=== PATIENT | female | born 1965 | race Caucasian/White ===

== ENCOUNTER 2016-06-21 06:25 | Day surgery (SDC) | payer BC ==
[2016-06-21] VITALS (11 sets, daily range): BP systolic 143–195; BP diastolic 67–94; PULSE 66–87; RESP 10–18; TEMP 98.3; O2SAT 91–100; Ht 165.1 cm; Wt 65.4 kg
[~2016-06-21] VITALS: Ht 165.1 cm; Wt 65.4 kg
[~2016-06-21 06:25] MED LIST: AMIT25TA9 PO; ASPI-557 PO; ATOR20TA59 PO; DIGO125T PO; HYDR-4072 PO; IBUP1TAB14 PO; METO-279 PO; NIAC750T15 PO; TRIA1TAB3 PO
[2016-06-21 06:58] LABS: BASOPHILS % (AUTO) 0.3 % (0-2); EOSINOPHILS # (AUTO) 0.2 T/MM3 (0-0.5); EOSINOPHILS % (AUTO) 2.5 % (0-4); HCT - HEMATOCRIT 27.5 % (36-46); HGB - HEMOGLOBIN 9.6 GM/DL (12-16); IMMATURE GRANULOCYTE # (AUTO) 0.03 T/MM3 (0.00-0.03); IMMATURE GRANULOCYTE % (AUTO) 0.5 % (0.0-0.5); LYMPHOCYTES # (AUTO) 0.6 T/MM3 (1-4.8); LYMPHOCYTES % (AUTO) 9.3 % (23-45); MEAN CORPUSCULAR HGB 35.8 UUG (26-34); MEAN CORPUSCULAR HGB CONC(MCHC 34.9 GM/DL (31-37); MEAN CORPUSCULAR VOLUME 102.6 UM3 (80-100); MEAN PLATELET VOLUME 9.7 UM3 (9.4-12.4); MONOCYTES # (AUTO) 0.5 T/MM3 (0-0.8); MONOCYTES % (AUTO) 8.8 % (0-9.0); NEUTROPHILS #(AUTO)-ABSOLUTE 4.7 T/MM3 (1.8-7.7); NEUTROPHILS % (AUTO) 78.6 % (33-66); RED BLOOD COUNT 2.68 M/MM3 (4.00-5.20)
[2016-06-21] MEDS ORDERED: LIDOCAINE 1% (10mg/ml) 2ml SDV INJ ONE (07:00)
[2016-06-21] MEDS ORDERED: LR 1,000 ML IV SCH (07:00)
[2016-06-21 07:08] LABS: CALCIUM 9.2 MG/DL (8.4-10.2); POTASSIUM 4.3 MEQ/L (3.6-5)
--- NOTE | 2016-06-21 07:09 | ANESPREOP ---
Anesthesia Record Date and Time DATE: 06/21/16 TIME: 07:03 Pre-Op Diagnosis cervical cancer Proposed Surgical Procedure TANDEM& OVOID INSERTION #1 NPO since: mn Allergies: Coded Allergies: latex (Verified Allergy, Intermediate, BLISTERING, 06/21/16) morphine (Verified Adverse Reaction, Unknown, HALLUCINATIONS, 06/21/16) Ht/Wt/BMI Height: ' " Weight: kg BMI: kg/m2 Vital Signs Date Time Temp Pulse Resp B/P Pulse Ox O2 Delivery O2 Flow Rate FiO2 06/21/16 06:45 98.3 87 10 143/67 96 Room Air Medications Inpatient Medications Current Medications Medications (Trade) Dose Ordered Sig/Jennie Start Time Stop Time Status Last Admin Dose Admin Lactated Ringer's (Lactated Ringers) 1,000 ml @ 30 mls/hr Q24H 06/21/16 07:00 06/21/16 06:59 30 MLS/HR Amitriptyline HCl (Amitriptyline HCl) 25 Mg Tablet, 1 TAB PO HS, (Reported) Last Taken: on 01/20/16 Aspirin (Aspir 81) 81 Mg Tablet.dr, 1 TAB PO DAILY, (Reported) Last Taken: on 06/19/16 2100 Atorvastatin Calcium (Atorvastatin Calcium) 20 Mg Tablet, 1 TAB PO HS, (Reported) Last Taken: on 06/19/16 2100 Chlorphen/Pseudoeph/Ibuprofen (Advil Allergy Sinus Caplet) 1 Each Tablet, 1 TAB PO DAILY PRN for ALLERY SYMPTOMS, (Reported) Last Taken: on 06/20/16 0800 Digoxin (Lanoxin) 125 Mcg Tablet, 1 TAB PO DAILY, (Reported) Last Taken: on 06/21/16 0530 Hydrocodone/Acetaminophen (Hydrocodon- Acetaminoph 7.5-325) 7.5-325 Tablet, 1-2 TAB PO Q6H PRN for PAIN, (Reported) Last Taken: on 06/20/16 1700 Metoprolol Succinate (Metoprolol Succinate) 100 Mg Tab.er.24h, 1 TAB PO BID, (Reported) Last Taken: on 06/21/16 0530 Niacin (Niacin ER) 750 Mg Tab.er.24h, 1 TAB PO BID, (Reported) Last Taken: on 06/18/16 Triamterene/Hydrochlorothiazid (Triamterene-Hctz 37.5-25 mg Tb) 1 Each Tablet, 1 TAB PO DAILY PRN for INCREASED BLOOD PRESSURE, ( Reported) Last Taken: on 05/31/16 Currently on Beta Mahendra: Yes Beta Mahendra Last Taken: 06/21/2016 @ 0530 Medical/Surgical History Anesthesia PMH: Reports: *Hypertension, *MT (before heart surgery), Asthma ( DOES NOT USE INHALER), CVA/Stroke/TIA (1990 or 1991--with heart cath--left sided weakness), Cancer (CERVICAL), Cardiac Arrythmia (history of paroxysmal odal tachycardia, 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 smoked today?: No Use Chewing Tobacco?: No Second Hand Exposure: No Substance Use Type: does not use Alcohol Intake: none HX of Last Menstrual Period: 2014 Past Surgical History Orthopedic Surgeries: Abdominal Surgeries: Yes - LAP HENRRY Genitourinary Surgeries: Cardiac Surgeries: Yes - OPEN HEART Endocrine Surgeries: Reproductive Surgeries: Yes - sleeve insertion for brachytherapy Neurological Surgeries: Ear Surgeries: Nose Surgeries: Throat Surgeries: Other Surgeries: Yes - Power Port Insertion Anesthesia Adverse Reactions: FOUND none Family Hx of Anesthesia Advers: none Hx of Motion Sickness: No Pertinent Findings Laboratory Tests 06/21/16 06:44 Physical Exam Respiratory: Lungs clear Cardiovascular: FOUND Regular rate, rhythm, FOUND Systolic murmur Airway Assessment Mallampati Score: II TMD: 3 Fingerbreadths Neck Extension: Fair Teeth: Other (amll mouth opening) Overall Assessment: No Airway Concerns ASA: 3 Plan Anesthesia Plan: TIVA, LMA, GETA Discussion Discussed risks/options/alternatives of anesthesia and questions answered. Patient consents. Nursing pain assessment noted. Present: Family Member Attestation Statement Prior to the delivery of any anesthetic medication, I examined the patient, developed the plan, obtained the patient's consent and discussed the risk and benefits of the procedure with the patient/guardian. MARISA LINDER CRNA Jun 21, 2016 07:07
[2016-06-21] MEDS ORDERED: IOHEXOL 300 MG/ML 50ml INJECTION ONE ×2 (07:10→08:10)
[2016-06-21] MEDS ORDERED: PROPOFOL 500mg 50 ML IV ONE (07:14)
[2016-06-21] MEDS ORDERED: ONDANSETRON 4mg/2ml INJECTION ONE (07:15)
[2016-06-21] MEDS ORDERED: KETAMINE 500mg/10ml INJECTION ONE (07:15)
[2016-06-21] MEDS ORDERED: DiphenhydrAMINE 50 MG/ML INJECTION ONE (07:45)
[2016-06-21] MEDS ORDERED: DEXAMETHASONE 4mg/ml - 1ml INJECTION ONE (07:49)
[2016-06-21] MEDS ORDERED: CEFAZOLIN 1 GRAM INJECTION IV ONE (08:00)
--- NOTE | 2016-06-21 08:11 | ANESPO ---
Post-Op Note Date 06/21/16 Time: 08:11 Status Pt Participated in Evaluation: Pt participated in person Vital Signs Date Time Temp Pulse Resp B/P Pulse Ox O2 Delivery O2 Flow Rate FiO2 06/21/16 06:45 98.3 87 10 143/67 96 Room Air Respiratory Function: Airway patent, Regular respirations Cardiovascular Function: Regular pulse Mental Status: Alert/oriented Pain Level Intensity: 0 Hydration: IV infusing Complications during Recovery None apparent Follow-Up Instructions Instructions Per Surgeon MARISA LINDER CRNA Jun 21, 2016 08:11
[2016-06-21] MEDS: HYDROMORPHONE 2mg/ml INJECTION IV PRN ×3 (08:22→08:42)
--- NOTE | 2016-06-21 09:30 | NUR ---
Transfer Patient alert and oriented. Resting quietly. Transferred to Imaging Department per cart for CT. Mulugeta patent. RN remains with patient during CT.
--- NOTE | 2016-06-21 09:38 | NUR ---
Transfer Patient remains alert and oriented. Resting quietly. Transfer of care to [facility]. Report given to Ale Tristan RN. To [facility] per cart. Dalal patent. Addendum: 06/21/16 at 1044 by KYLAH CLAYTON RN Time of transfer should be 0948 and not 0938.
--- NOTE | 2016-06-21 10:24 | DI ---
Indication: ITS.REASON: Verify applicator placement and R/O postop complication PROCEDURE: CT PELVIS W/O CONTRAST: Encounter: Initial Comparison: None Technique: Axial noncontrast CT imaging through the pelvis with coronal and sagittal two-dimensional reformats. Automated Exposure Control and Iterative Reconstruction dose reducing techniques were utilized. Findings: Tandem and ovoid device in place. The tandem appears appropriately positioned in the central aspect of the uterus. No evidence of uterine perforation. Ovoids appear normally positioned. Dalal catheter within a contrast-filled bladder. Contrast material within the rectosigmoid colon as well. No evidence of solid organ perforation. Visualized small and large bowel loops in the pelvis are unremarkable. Bone windows are within normal limits. Impression: Radiation therapy treatment device in place with no evidence of immediate complication. .
[2016-07-17] MEDS ORDERED: SULF1TAB3 PO (08:55)
--- NOTE | 2016-09-03 12:17 | GSDISC ---
General Date Date 06/21/2016 Attending Physician Sri Díaz MD Admitting Physician Sri Díaz MD Consulting Physician Discharge Diagnosis: (1) Cervical carcinoma Hospital Course Patient prepped and draped in standard fashion. Dalal in place with Hypaque in balloon. Exam under anesthesia shows good response to therapy so far with no new lesions or masses. 15 degree tandem placed in previously placed cervical sleeve. Small ovoids placed without complication. Separate bladder and rectal packing placed to maximize distance from treatment source. Rectal tube placed for rectal contrast later in CT. Patient tolerated treatment well and was dismissed to recovery in good condition. Home Meds Reported Medications Sulfamethoxazole/Trimethoprim (Sulfamethoxazole-Tmp Ds Tablet) 1 Each Tablet, 1 TAB PO BID 07/17/16 Aspirin (Aspir 81) 81 Mg Tablet.dr, 1 TAB PO DAILY, TAB 06/20/16 Chlorphen/Pseudoeph/Ibuprofen (Advil Allergy Sinus Caplet) 1 Each Tablet, 1 TAB PO DAILY Y for ALLERY SYMPTOMS 06/20/16 Digoxin (Lanoxin) 125 Mcg Tablet, 1 TAB PO DAILY, TAB 06/20/16 Hydrocodone/Acetaminophen (Hydrocodon-Acetaminoph 7.5-325) 7.5-325 Tablet, 1-2 TAB PO Q6H Y for PAIN 06/20/16 Amitriptyline HCl (Amitriptyline HCl) 25 Mg Tablet, 1 TAB PO HS 06/20/16 Niacin (Niacin ER) 750 Mg Tab.er.24h, 1 TAB PO BID 06/20/16 Atorvastatin Calcium (Atorvastatin Calcium) 20 Mg Tablet, 1 TAB PO HS 06/20/16 Metoprolol Succinate (Metoprolol Succinate) 100 Mg Tab.er.24h, 1 TAB PO BID 06/20/16 Triamterene/Hydrochlorothiazid (Triamterene-Hctz 37.5-25 mg Tb) 1 Each Tablet, 1 TAB PO DAILY Y for INCREASED BLOOD PRESSURE 06/20/16 Discharge Disposition Dismissed to recovery in good condition. SRI DÍAZ MD September 03, 2016 12:16
== END 2016-06-21 09:48 | disposition home or self-care (01) ==
LOC: SCU 06:25
PROVIDERS: ATTEND Radiology Radiation Oncology
DX: C53.0 Malignant neoplasm of endocervix (principal); K21.9 Gastro-esophageal reflux disease without esophagitis; G47.33 Obstructive sleep apnea (adult) (pediatric); E78.5 Hyperlipidemia, unspecified; M81.0 Age-related osteoporosis without current pathological fracture; Z79.82 Long term (current) use of aspirin; Z79.899 Other long term (current) drug therapy; Z99.89 Dependence on other enabling machines and devices
CPT/HCPCS: 57155; 72192; 80048; 85025; J0360; J0690; J1100; J1170; J1200; J2405; J2704; J7120; Q9967

== ENCOUNTER 2016-07-04 08:30 | Day surgery (SDC) | payer BC ==
[~2016-07-04] VITALS: Ht 160 cm; Wt 63.2 kg
[~2016-07-04 08:30] MED LIST changes: +CEFAZOLIN 1 GRAM INJECTION IV ONE; +IOHEXOL 300 MG/ML 50ml INJECTION ONE; +LR 1,000 ML IV SCH
[2016-07-04 08:42] VITALS: Ht 160 cm; Wt 63.2 kg
[2016-07-04 08:43] VITALS: BP 140/70; PULSE 73; RESP 15; TEMP 97.6; O2SAT 100
--- OUTSIDE RECORDS SUMMARY | 2016-07-04 08:48 | XMS REPORT | Continuity of Care Document ---
Author Author [facility] Organization [facility] Address Unknown Phone Unavailable Support Name Relationship Address Phone MATT REYES MD Caregiver [address] [place] [address] Unavailable JEAN PIERRE WEST DO Caregiver [address] [place] [address] Unavailable ANA RIVERA Next Of Kin [address] [place] [id number] Insurance Providers Guarantor Crow Zuniga Address [address] [place] [address] Email DENIED 16 Payer [facility] Policy Number [id number] Subscriber's Name Crow Zuniga Relationship 18 Self Group Number [id number] Advance Directives Directive Response Recorded Date/Time Ordered Resuscitation Status Full Code 06/27/16 4:43pm Resuscitation Documents on File No 06/28/16 12:20pm DPOA for Healthcare Only Yes 06/28/16 12:20pm Living Will Yes 06/28/16 12:20pm Problems Active Problems Medical Problem Onset Date Status Cervical carcinoma Unknown Medications Current Home Medications Medication Dose Units Route Directions Days Qty Instructions Start Date Amitriptyline Hcl 25 Mg Tablet 1 Tab Oral Bedtime 06/20/16 Aspirin (Aspir 81) 81 Mg Tablet. 1 Tab Oral Daily 06/20/16 Atorvastatin Calcium 20 Mg Tablet 1 Tab Oral Bedtime 06/20/16 Chlorphen/Pseudoeph/Ibuprofen (Advil Allergy Sinus Caplet) 1 Each Tablet 1 Tab Oral Daily as needed for Allery Symptoms 06/20/16 Digoxin (Lanoxin) 125 Mcg Tablet 1 Tab Oral Daily 06/20/16 Hydrocodone/Acetaminophen (Hydrocodon-Acetaminoph 7.5-325) 7.5-325 Tablet 1-2 Tab Oral Every 6 Hours as needed for Pain 06/20/16 Metoprolol Succinate 100 Mg Tab.er.24h 1 Tab Oral Twice A Day Niacin (Niacin Er) 750 Mg Tab.er.24h 1 Tab Oral Twice A Day 06/20 Triamterene/Hydrochlorothiazid (Triamterene-Hctz 37.5-25 Mg Tb) 1 Each Tablet 1 Tab Oral Daily as needed for Increased Blood Pressure 06/20/16 Social History Social History Problem Response Recorded Date/Time Onset Date Status Hx Substance Use No 06/28/2016 12:31pm Not Applicable Not Applicable Hx Alcohol Use No 06/28/2016 12:31pm Not Applicable Not Applicable Has the pt used tobacco in the last 12 months No 06/28/2016 12:31pm Not Applicable Not Applicable Query Response Start Date Stop Date Smoking Status Former smoker Hospital Discharge Instructions No hospital discharge instructions. Plan of Care Discharge Date 06/28/16 3:15pm Prescriptions See Medication Section Functional Status Query Response Date Recorded Ability to complete ADL's impeded by No change June 28, 2016 12:20pm Allergies, Adverse Reactions, Alerts Allergen Type Severity Reaction Status Last Updated Morphine Adverse Reaction Unknown HALLUCINATIONS Active 06/28/16 Latex Allergy Intermediate BLISTERING Active 06/28/16 Immunizations Query Response on File Recorded Date/Time Hx Influenza Vaccination Y JAN 2016 06/28/16 12:31pm Hx Pneumococcal Vaccination Y 201506/28/16 12:31pm Hx Influenza Vaccination Y JAN 2016 06/28/16 12:31pm Vital Signs Acute Vital Signs Vital Response Date/Time Temperature (Fahrenheit) 98.2 deg F (96.8 - 99.1) 06/28/2016 2:08pm Temperature (Calculated Celsius) 36.74082 degrees C (36.0 - 37.3) 06/28/2016 2:08pm Temperature Source Temporal 06/28/2016 2:08pm Pulse Rate (adult) 69 bpm (60 - 100) 06/28/2016 2:55pm Respiratory Rate 20 breaths/min (10 - 20) 06/28/2016 2:55pm O2 Sat by Pulse Oximetry 97 % (90 - 100) 06/28/2016 2:55pm Oxygen Delivery Method Room Air 06/28/2016 2:55pm Oxygen Flow Rate 6.00 L/min 06/28/2016 2:08pm Blood Pressure 126/64 mm Hg 06/28/2016 2:55pm Blood Pressure Source Automatic Cuff 06/28/2016 2:55pm Height (Feet) 5 feet 06/28/2016 12:19pm Height (Inches) 3.00 inches 06/28/2016 12:19pm Weight (Kilograms) 64.200 kg 06/28/2016 12:19pm Body Mass Index (BMI) 25.1 06/28/2016 12:19pm Results Laboratory Results Test Name Result Units Flags Reference Collection Date/Time Result Date/ Time Comments RDW Standard Deviation 66.6 FL H 36.9-50.2 06/21/2016 6:44am 06/21/2016 6:58am Neutrophils (%) (Auto) 78.6 % H 33-66 06/21/2016 6:44am 06/21/2016 6: 58am Lymphocytes (%) (Auto) 9.3 % L 23-45 06/21/2016 6:44am 06/21/2016 6: 58am Monocytes (%) (Auto) 8.8 % 0-9.0 06/21/2016 6:44am 06/21/2016 6:58am Eosinophils (%) (Auto) 2.5 % 0-4 06/21/2016 6:44am 06/21/2016 6:58am Basophils (%) (Auto) 0.3 % 0-2 06/21/2016 6:44am 06/21/2016 6:58am Immature Granulocyte % (Auto) 0.5 % 0.0-0.5 06/21/2016 6:44am 2016 6:58am Absolute Neutrophils (auto) 4.7 T/MM3 1.8-7.7 06/21/2016 6:44am 2016 6:58am Absolute Lymphocytes (auto) 0.6 T/MM3 L 1-4.8 06/21/2016 6:44am 2016 6:58am Absolute Monocytes (auto) 0.5 T/MM3 0-0.8 06/21/2016 6:44am 06/21/2016 6:58am Absolute Eosinophils (auto) 0.2 T/MM3 0-0.5 06/21/2016 6:44am 2016 6:58am Absolute Basophils (auto) 0.0 T/MM3 0-0.2 06/21/2016 6:44am 06/21/2016 6:58am Absolute Immature Granulocyte (auto 0.03 T/MM3 0.00-0.03 06/21/2016 6: 44am 06/21/2016 6:58am White Blood Count 6.8 T/MM3 4.5-11.0 06/28/2016 12:11pm 06/28/2016 12: 33pm Red Blood Count 2.84 M/MM3 L 4.00-5.20 06/28/2016 12:11pm 06/28/2016 12: 33pm Hemoglobin 10.1 GM/DL L 12-16 06/28/2016 12:11pm 06/28/2016 12:33pm Hematocrit 29.2 % L 36-46 06/28/2016 12:11pm 06/28/2016 12:33pm Mean Corpuscular Volume 102.8 UM3 H 80-100 06/28/2016 12:11pm 2016 12:33pm Mean Corpuscular Hemoglobin 35.6 UUG H 26-34 06/28/2016 12:11pm 2016 12:33pm Mean Corpuscular Hemoglobin Concent 34.6 GM/DL 31-37 06/28/2016 12:11pm 06/28/2016 12:33pm Platelet Count 244 T/MM3 D 130-400 06/28/2016 12:11pm 06/28/2016 12:33pm Mean Platelet Volume 9.3 UM3 L 9.4-12.4 06/28/2016 12:11pm 06/28/2016 12 :33pm Neutrophils % (Manual) 79.0 % H 33-66 06/28/2016 12:11pm 06/28/2016 1: 02pm Band Neutrophils % 4.0 % 0-6 06/28/2016 12:11pm 06/28/2016 1:02pm Lymphocytes % (Manual) 6.0 % L 23-45 06/28/2016 12:11pm 06/28/2016 1: 02pm Monocytes % (Manual) 11.0 % H 0-9.0 06/28/2016 12:11pm 06/28/2016 1: 02pm Band Neutrophils # 0.3 T/MM3 06/28/2016 12:11pm 06/28/2016 1:02pm Absolute Neutrophils (Manual) 5.4 T/MM3 1.8-7.7 06/28/2016 12:11pm 06/2016 1:02pm Lymphocytes # (Manual) 0.4 T/MM3 L 1-4.8 06/28/2016 12:11pm 06/28/2016 1 :02pm Monocytes # (Manual) 0.7 T/MM3 0-0.8 06/28/2016 12:11pm 06/28/2016 1: 02pm Red Cell Morphology Comment ABNORMAL 06/28/2016 12:11pm 06/28/2016 1:02pm Anisocytosis 1+ 06/28/2016 12:11pm 06/28/2016 1:02pm Poikilocytosis 1+ 06/28/2016 12:11pm 06/28/2016 1:02pm Macrocytosis 1+ 06/28/2016 12:11pm 06/28/2016 1:02pm Icterus Index < 2 0-7 06/28/2016 12:11pm 06/28/2016 12:38pm Chemistry Specimen Hemolysis < 15 0-25 06/28/2016 12:11pm 06/28/2016 12:38pm 0-25: Specimen Exhibited No Hemolysis. Turbidity 34 H 0-20 06/28/2016 12:11pm 06/28/2016 12:38pm 0-21: Turbidity not present. 22-999: Turbidity present - Gross turbidity can falsely decrease Lipase and Triglycerides. Sodium Level 139 MEQ/L 134-144 06/28/2016 12:11pm 06/28/2016 12:38pm Potassium Level 4.5 MEQ/L 3.6-5 06/28/2016 12:11pm 06/28/2016 12:38pm Chloride Level 105 MEQ/L 98-107 06/28/2016 12:11pm 06/28/2016 12:38pm Carbon Dioxide Level 24 MEQ/L 22-30 06/28/2016 12:11pm 06/28/2016 12: 38pm Anion Gap 10 MEQ/L 5-15 06/28/2016 12:11pm 06/28/2016 12:38pm Blood Urea Nitrogen 19.0 MG/DL H 7-17 06/28/2016 12:11pm 06/28/2016 12: 38pm Creatinine 1.0 MG/DL 0.7-1.2 06/28/2016 12:11pm 06/28/2016 12:38pm BUN/Creatinine Ratio 19 RATIO 6-26 06/28/2016 12:11pm 06/28/2016 12: 38pm Glomerular Filtration Rate Calc 58 06/28/2016 12:11pm 06/28/2016 12 :38pm Glucose Level 104 MG/DL 65-110 06/28/2016 12:11pm 06/28/2016 12:38pm Calculated Osmolality 270 MOSM/KG 261-280 06/28/2016 12:11pm 2016 12:38pm Calcium Level 9.4 MG/DL 8.4-10.2 06/28/2016 12:11pm 06/28/2016 12:38pm Urine Collection Type CLEANCATCH-MIDSTREAM 06/28/2016 12:11pm 06/28 12:33pm Urine Color YELLOW YELLOW 06/28/2016 12:11pm 06/28/2016 12:33pm Urine Turbidity CLEAR CLEAR 06/28/2016 12:11pm 06/28/2016 12:33pm Urine Specific [place] 1.015 1.015-1.025 06/28/2016 12:11pm 2016 12:33pm Urine pH 5.5 5.0-8.0 06/28/2016 12:11pm 06/28/2016 12:33pm Urine Leukocyte Esterase TRACE A NEGATIVE 06/28/2016 12:11pm 2016 12:33pm Urine Nitrite NEGATIVE NEGATIVE 06/28/2016 12:11pm 06/28/2016 12: 33pm Urine Protein NEGATIVE NEGATIVE 06/28/2016 12:11pm 06/28/2016 12: 33pm Urine Glucose (UA) NEGATIVE NEGATIVE 06/28/2016 12:11pm 06/28/2016 12 :33pm Urine Ketones NEGATIVE NEGATIVE 06/28/2016 12:11pm 06/28/2016 12: 33pm Urine Urobilinogen 0.2 EU/DL NORMAL 06/28/2016 12:11pm 06/28/2016 12: 33pm Urine Bilirubin NEGATIVE NEGATIVE 06/28/2016 12:11pm 06/28/2016 12: 33pm Urine Blood TRACE-INTACT A NEGATIVE 06/28/2016 12:11pm 06/28/2016 12: 33pm Urinalysis Comment MICROSCOPIC NOT IND. 06/28/2016 12:11pm 2016 12:33pm Urinalysis Comment MICROSCOPIC NOT IND. 06/21/2016 12:25pm 2016 12:44pm Microbiology Results Procedure Source Organism/Result Collection Date/Time Result Date/Time Result Status Urine Culture Urine, Clean Catch-Midstream NO GROWTH AFTER 48 HOURS 2016 12:25pm 06/23/2016 8:45am Final Name: CROW ZUNIGA Unit #: [id number] : [id number] Sex: F Admit Date: Loc / Svc: SCU Discharge Date: DIAGNOSTIC IMAGING REPORT [facility] [id number]: ITS.REASON: VERIFY APPLICATOR PLACEMENT AND R/O POSTOP COMPLICATION PROCEDURE: CT PELVIS W/O CONTRAST: Encounter: Subsequent Comparison: Pelvis CT dated June 21, 2016 Technique: Axial noncontrast CT imaging through the pelvis with coronal and sagittal two-dimensional reformats. Automated Exposure Control and Iterative Reconstruction dose reducing techniques were utilized. Findings: Tandem and ovoid device in place. The tandem appears appropriately positioned in the central aspect of the uterus. No evidence of uterine perforation. Ovoids appear normally positioned. Dalal catheter within a contrast-filled bladder. Contrast material within the rectosigmoid colon as well. No evidence of solid organ perforation. Visualized small and large bowel loops in the pelvis are unremarkable. Bone windows are within normal limits. Impression: Radiation therapy treatment device in place with no evidence of immediate complication. . Procedures Procedure Status Date Provider(s) Urinalysis auto w/o scope Completed 06/21/16 Brachytherapy Completed 06/21/16 MATT REYES MD Brachytherapy Completed 06/28/16 MATT REYES MD Encounters Encounter Location Arrival/Admit Date Discharge/Depart Date Attending Provider Departed Surgical [facility] 06/28/16 11:43am 06/28/16 3 :15pm MATT REYES MD [facility] 06/21/16 12:36pm MATT REYES MD Departed Surgical [facility] 06/21/16 6:25am 02/24/17 9: 48am MATT REYES MD
[2016-07-04 09:09] LABS: HGB - HEMOGLOBIN 10.3 GM/DL (12-16); MEAN CORPUSCULAR HGB 35.9 UUG (26-34); MEAN CORPUSCULAR HGB CONC(MCHC 34.3 GM/DL (31-37); MEAN CORPUSCULAR VOLUME 104.5 UM3 (80-100); MEAN PLATELET VOLUME 9.3 UM3 (9.4-12.4); RED BLOOD COUNT 2.87 M/MM3 (4.00-5.20); WBC - WHITE BLOOD COUNT 7.4 T/MM3 (4.5-11.0)
[2016-07-04 09:11] LABS: BLOOD, URINE NEGATIVE (NEGATIVE); COLOR,URINE YELLOW (YELLOW); LEUKOCYTE ESTERASE ,URINE TRACE (NEGATIVE); NITRITE,URINE NEGATIVE (NEGATIVE); UROBILINOGEN,URINE 0.2 EU/DL (NORMAL)
--- NOTE | 2016-07-04 09:16 | ANESPREOP ---
Anesthesia Record Date and Time DATE: 07/04/16 TIME: 09:13 Pre-Op Diagnosis cervical cancer Proposed Surgical Procedure T&O #3 NPO since: [place] Allergies: Coded Allergies: latex (Verified Allergy, Intermediate, BLISTERING, 06/28/16) morphine (Verified Adverse Reaction, Unknown, HALLUCINATIONS, 06/28/16) Ht/Wt/BMI Height: 5 ' 3.00 " Weight: 63.200 kg BMI: 24.7 kg/m2 Vital Signs Date Time Temp Pulse Resp B/P Pulse Ox O2 Delivery O2 Flow Rate FiO2 07/04/16 08:43 97.6 73 15 140/70 100 Room Air Medications Inpatient Medications Current Medications Medications (Trade) Dose Ordered Sig/Jennie Start Time Stop Time Status Last Admin Dose Admin Lactated Ringer's (Lactated Ringers) 1,000 ml @ 30 mls/hr Q24H 07/04/16 07:00 Amitriptyline HCl (Amitriptyline HCl) 25 Mg Tablet, 1 TAB PO HS, (Reported) Last Taken: on Unknown Date & Time Aspirin (Aspir 81) 81 Mg Tablet.dr, 1 TAB PO DAILY, (Reported) Last Taken: on 07/02/16 Atorvastatin Calcium (Atorvastatin Calcium) 20 Mg Tablet, 1 TAB PO HS, (Reported) Last Taken: on 07/03/16 1800 Chlorphen/Pseudoeph/Ibuprofen (Advil Allergy Sinus Caplet) 1 Each Tablet, 1 TAB PO DAILY PRN for ALLERY SYMPTOMS, (Reported) Last Taken: on 07/04/16 0530 Digoxin (Lanoxin) 125 Mcg Tablet, 1 TAB PO DAILY , (Reported) Last Taken: on 07/04/16 0530 Hydrocodone/Acetaminophen (Hydrocodon- Acetaminoph 7.5-325) 7.5-325 Tablet, 1-2 TAB PO Q6H PRN for PAIN, (Reported) Last Taken: on 07/04/16 0000 Metoprolol Succinate (Metoprolol Succinate) 100 Mg Tab.er.24h, 1 TAB PO BID, (Reported) Last Taken: on 07/04/16 0530 Niacin (Niacin ER) 750 Mg Tab.er.24h, 1 TAB PO BID, (Reported) Last Taken: on 07/02/16 Triamterene/Hydrochlorothiazid (Triamterene-Hctz 37.5-25 mg Tb) 1 Each Tablet, 1 TAB PO DAILY PRN for INCREASED BLOOD PRESSURE, ( Reported) Last Taken: on Unknown Date & Time Currently on Beta Mahendra: Yes Beta Mahendra Last Taken: 0530 Medical/Surgical History Anesthesia PMH: Reports: *Hypertension, *ID (before heart surgery), Asthma ( DOES NOT USE INHALER), CVA/Stroke/TIA (1990 or 1991--with heart cath--left sided weakness), Cancer (CERVICAL), Cardiac Arrythmia, Hyperlipidemia, Sleep Apnea (USES CPAP), Denies: *Angina, *Diabetes, *Dyspnea, Anesthesia Reactions ( NO AIRWAY ISSUES), Arthritis, Blood Transfusion Reac, COPD, Clotting Problems, Deep Vein Thrombosis, Glaucoma, Hepatitis, Hiatal Hernia, Malignant Hyperthermia , Pneumonia, Reflux, Renal Disease, Thyroid Disease, Tuberculosis Use Chewing Tobacco?: No Second Hand Exposure: Yes (cigars) Substance Use Type: does not use Alcohol Intake: none Past Surgical History Orthopedic Surgeries: Abdominal Surgeries: Yes - LAP HENRRY Genitourinary Surgeries: Cardiac Surgeries: Yes - OPEN HEART Endocrine Surgeries: Reproductive Surgeries: Yes - sleeve insertion for brachytherapy,T&O INSERTION Neurological Surgeries: Ear Surgeries: Nose Surgeries: Throat Surgeries: Other Surgeries: Yes - Power Port Insertion Anesthesia Adverse Reactions: FOUND none Family Hx of Anesthesia Advers: none Hx of Motion Sickness: No Pertinent Findings EKG Rhythm: Sinus Rhythm Physical Exam Respiratory: Bilat breath sounds equal, Lungs clear Cardiovascular: FOUND Regular rate, rhythm, FOUND No murmur Airway Assessment Mallampati Score: I TMD: 3 Fingerbreadths Neck Extension: Good Overall Assessment: No Airway Concerns ASA: 3 Plan Anesthesia Plan: TIVA Discussion Discussed risks/options/alternatives of anesthesia and questions answered. Patient consents. Nursing pain assessment noted. Attestation Statement Prior to the delivery of any anesthetic medication, I examined the patient, developed the plan, obtained the patient's consent and discussed the risk and benefits of the procedure with the patient/guardian. TSEPHANIE MARTINEZ CRNA Jul 04, 2016 09:15
[2016-07-04 09:21] LABS: ANION GAP 11 MEQ/L (5-15); BUN/CREATININE RATIO 17 RATIO (6-26); CALCIUM 9.7 MG/DL (8.4-10.2); CHLORIDE 104 MEQ/L (98-107); CO2 - CARBON DIOXIDE 22 MEQ/L (22-30); GLOMERULAR FILTRATION RATE 58; GLUCOSE 110 MG/DL (65-110); POTASSIUM 4.3 MEQ/L (3.6-5); SODIUM 137 MEQ/L (134-144)
[2016-07-04 09:40] LABS: BAND NEUTROPHILS # 0.1 T/MM3; LYMPHOCYTES # (MANUAL) 0.2 T/MM3 (1-4.8); MONOCYTES # (MANUAL) 0.4 T/MM3 (0-0.8); NEUTROPHILS #(MANUAL)-ABSOLUTE 6.7 T/MM3 (1.8-7.7); TOTAL CELLS COUNTED 100 %
[2016-07-04 09:43] LABS: ANISOCYTOSIS 2+; POIKILOCYTOSIS 1+
[2016-07-04] MEDS ORDERED: IOHEXOL 300 MG/ML 50ml INJECTION ONE (09:56)
[2016-07-04 10:14] VITALS: BP 130/61; PULSE 68; RESP 16; TEMP 98; O2SAT 100
[2016-07-04 10:29] VITALS: BP 114/58; PULSE 68; RESP 14; O2SAT 97
[2016-07-04 10:30] VITALS: BP 114/58; PULSE 68; RESP 14; O2SAT 97
--- NOTE | 2016-07-04 10:40 | ANESPO ---
Post-Op Note Date 07/04/16 Time: 10:37 Status Pt Participated in Evaluation: Pt participated in person Vital Signs Date Time Temp Pulse Resp B/P Pulse Ox O2 Delivery O2 Flow Rate FiO2 07/04/16 10:30 68 14 114/58 97 Room Air 07/04/16 10:14 98.0 Respiratory Function: Airway patent, Regular respirations Cardiovascular Function: Regular pulse Mental Status: Alert/oriented Pain Level Intensity: 3 Hydration: IV infusing Complications during Recovery None apparent Follow-Up Instructions Instructions Per Surgeon MARISA LINDER CRNA Jul 04, 2016 10:39
[2016-07-04 10:45] VITALS: BP 108/55; PULSE 68; RESP 14; O2SAT 95
[2016-07-04 11:00] VITALS: BP 122/63; PULSE 68; RESP 14; TEMP 97.7; O2SAT 96
--- NOTE | 2016-07-04 11:00 | NUR ---
Transfer Patient aler and oriented. Without complaints. Transferred to Imaging Department for CT per abigail. Mulugeta patent. RN remains with patient for CT.
--- NOTE | 2016-07-04 11:20 | NUR ---
Transfer Patient remains alert and oriented. Without complaints. Transfer of care to [facility]. Report given to Ale Tristan RN. To [facility] per cart. Dalal patent with clear yellow urine.
--- NOTE | 2016-07-04 12:01 | DI ---
Indication: ITS.REASON: verify applicator placement and R/O postop complication PROCEDURE: CT PELVIS W/O CONTRAST: Encounter: Subsequent Comparison: June 28, 2016 Technique: Axial noncontrast CT imaging through the pelvis with coronal and sagittal two-dimensional reformats. Automated Exposure Control and Iterative Reconstruction dose reducing techniques were utilized. Findings: Tandem and ovoid device in place. The tandem appears appropriately positioned in the central aspect of the uterus. No evidence of uterine perforation. Ovoids appear normally positioned. Dalal catheter within a contrast-filled bladder. Contrast material within the rectosigmoid colon as well. No evidence of solid organ perforation. Visualized small and large bowel loops in the pelvis are unremarkable. Bone windows are within normal limits. Impression: Radiation therapy treatment device in place with no evidence of immediate complication. .
--- NOTE | 2016-07-04 15:57 | GSDISC ---
General Date Date DATE: 07/04/16 TIME: 15:50 Attending Physician Sri Díaz MD Admitting Physician Sri Díaz MD Consulting Physician Discharge Diagnosis: (1) Cervical carcinoma Procedures Exam Under Anesthesia (EUA) and Brachytherapy using Tandem and Ovoids Hospital Course Patient was prepped in standard fashion. EUA was done . Good response was noted. 15 degree tandem inserted with small ovoids with good geometry. Separate vaginal packs were used for bladder and rectal regions. Dalal with Hypaque in the balloon for ID and planning. Rectal tube was placed for planning purposes. Patient was taken to recovery room in good condition. Home Meds Reported Medications Aspirin (Aspir 81) 81 Mg Tablet.dr, 1 TAB PO DAILY, TAB 06/20/16 Chlorphen/Pseudoeph/Ibuprofen (Advil Allergy Sinus Caplet) 1 Each Tablet, 1 TAB PO DAILY Y for ALLERY SYMPTOMS 06/20/16 Digoxin (Lanoxin) 125 Mcg Tablet, 1 TAB PO DAILY, TAB 06/20/16 Hydrocodone/Acetaminophen (Hydrocodon-Acetaminoph 7.5-325) 7.5-325 Tablet, 1-2 TAB PO Q6H Y for PAIN 06/20/16 Amitriptyline HCl (Amitriptyline HCl) 25 Mg Tablet, 1 TAB PO HS 06/20/16 Niacin (Niacin ER) 750 Mg Tab.er.24h, 1 TAB PO BID 06/20/16 Atorvastatin Calcium (Atorvastatin Calcium) 20 Mg Tablet, 1 TAB PO HS 06/20/16 Metoprolol Succinate (Metoprolol Succinate) 100 Mg Tab.er.24h, 1 TAB PO BID 06/20/16 Triamterene/Hydrochlorothiazid (Triamterene-Hctz 37.5-25 mg Tb) 1 Each Tablet, 1 TAB PO DAILY Y for INCREASED BLOOD PRESSURE 06/20/16 Discharge Disposition Discharged to recovery in good condition. SRI DÍAZ MD Jul 04, 2016 15:55
[2016-07-17] MEDS ORDERED: SULF1TAB3 PO (08:55)
== END 2016-07-04 11:20 | disposition home or self-care (01) ==
LOC: SCU 08:30
PROVIDERS: ATTEND Radiology Radiation Oncology
DX: C53.0 Malignant neoplasm of endocervix (principal); Z79.899 Other long term (current) drug therapy; K21.9 Gastro-esophageal reflux disease without esophagitis; G47.33 Obstructive sleep apnea (adult) (pediatric); J30.9 Allergic rhinitis, unspecified; E78.5 Hyperlipidemia, unspecified; M81.0 Age-related osteoporosis without current pathological fracture; Q78.0 Osteogenesis imperfecta; Q22.5 Ebstein's anomaly; I47.1 Supraventricular tachycardia; Z79.82 Long term (current) use of aspirin; Z99.89 Dependence on other enabling machines and devices; Z87.891 Personal history of nicotine dependence
CPT/HCPCS: 57155; 72192; 80048; 81003; 85025; J0690; Q9967; 93005

== ENCOUNTER 2016-07-18 08:10 | Day surgery (SDC) | payer BC ==
[2016-07-18] VITALS (7 sets, daily range): BP systolic 97–129; BP diastolic 56–63; PULSE 64–75; RESP 12–14; TEMP 97.6–98.2; O2SAT 93–100; Ht 160 cm; Wt 63.1 kg
[~2016-07-18] VITALS: Ht 160 cm; Wt 63.1 kg
[~2016-07-18 08:10] MED LIST changes: -IOHEXOL 300 MG/ML 50ml INJECTION ONE; +LIDOCAINE 1% (10mg/ml) 2ml SDV INJ ONE; +SULF1TAB3 PO
--- OUTSIDE RECORDS SUMMARY | 2016-07-18 08:15 | XMS REPORT | Continuity of Care Document ---
Author Author [facility] Organization [facility] Address Unknown Phone Unavailable Support Name Relationship Address Phone MATT REYES MD Caregiver [address] [place] [place] [address] Unavailable JEAN PIERRE WEST DO Caregiver [address] [place] [address] Unavailable ANA RIVERA Next Of Kin [address] [place] [id number] Insurance Providers Guarantor Crow Zuniga Address [address] [place] [id number] Email DENIED 16 Payer [facility] Policy Number [id number] Subscriber's Name Crow Zuniga Relationship 18 Self Group Number [id number] Advance Directives Directive Response Recorded Date/Time Ordered Resuscitation Status Full Code 07/10/16 2:47pm Resuscitation Documents on File No 07/11/16 8:46am DPOA for Healthcare Only No 07/11/16 8:46am Living Will No 07/11/16 8:46am Problems Active Problems Medical Problem Onset Date [...] Problem Response Recorded Date/Time Onset Date Status Chewing Tobacco Status No 07/11/2016 8:30am Not Applicable Not Applicable Hx Substance Use No 07/11/2016 8:30am Not Applicable Not Applicable Hx Alcohol Use No 07/11/2016 8:30am Not Applicable Not Applicable Has the pt used tobacco in the last 12 months No 07/11/2016 8:30am Not Applicable Not Applicable Query Response Start Date Stop Date Smoking Status Former smoker Hospital Discharge Instructions No hospital discharge instructions. Plan of Care Discharge Date 07/11/16 11:40am Prescriptions See Medication Section Functional Status Query Response Date Recorded Ability to complete ADL's impeded by No change July 11, 2016 8:46am Allergies, Adverse Reactions, Alerts Allergen Type Severity Reaction Status Last Updated Morphine Adverse Reaction Unknown HALLUCINATIONS Active 06/28/16 Latex Allergy Intermediate BLISTERING Active 06/28/16 Immunizations Query Response on File Recorded Date/Time Hx Influenza Vaccination Y JAN 2016 07/11/16 8:30am Hx Pneumococcal Vaccination Y 201507/11/16 8:30am Hx Influenza Vaccination Y JAN 2016 07/11/16 8:30am Vital Signs Acute Vital Signs Vital Response Date/Time Temperature (Fahrenheit) 97.9 deg F (96.8 - 99.1) 07/11/2016 10:55am Temperature (Calculated Celsius) 36.66923 degrees C (36.0 - 37.3) 07/11/2016 10:55am Temperature Source Temporal 07/11/2016 10:55am Pulse Rate (adult) 74 bpm (60 - 100) 07/11/2016 11:05am Respiratory Rate 14 breaths/min (10 - 20) 07/11/2016 11:05am O2 Sat by Pulse Oximetry 96 % (90 - 100) 07/11/2016 11:05am Oxygen Delivery Method Room Air 07/11/2016 11:05am Oxygen Flow Rate 6.00 L/min 06/28/2016 2:08pm Blood Pressure 121/64 mm Hg 07/11/2016 11:05am Blood Pressure Source Automatic Cuff 07/11/2016 11:05am Height (Feet) 5 feet 07/11/2016 8:20am Height (Inches) 3.00 inches 07/11/2016 8:20am Weight (Kilograms) 63.200 kg 07/11/2016 8:20am Body Mass Index (BMI) 24.7 07/11/2016 8:20am Results Laboratory Results Test Name Result Units Flags Reference Collection Date/Time Result Date/ Time Comments White Blood Count 7.1 T/MM3 4.5-11.0 07/11/2016 8:38am 07/11/2016 8: 46am Red Blood Count 2.93 M/MM3 L 4.00-5.20 07/11/2016 8:38am 07/11/2016 8: 46am Hemoglobin 10.6 GM/DL L 12-16 07/11/2016 8:38am 07/11/2016 8:46am Hematocrit 30.8 % L 36-46 07/11/2016 8:38am 07/11/2016 8:46am Mean Corpuscular Volume 105.1 UM3 H 80-100 07/11/2016 8:38am 07/11/2016 8:46am Mean Corpuscular Hemoglobin 36.2 UUG H 26-34 07/11/2016 8:38am 2016 8:46am Mean Corpuscular Hemoglobin Concent 34.4 GM/DL 31-37 07/11/2016 8:38am 07/11/2016 8:46am RDW Standard Deviation 60.8 FL H 36.9-50.2 07/11/2016 8:38am 07/11/2016 8:46am Platelet Count 257 T/MM3 130-400 07/11/2016 8:38am 07/11/2016 8:46am Mean Platelet Volume 8.8 UM3 L 9.4-12.4 07/11/2016 8:38am 07/11/2016 8: 46am Neutrophils (%) (Auto) 81.2 % H 33-66 07/11/2016 8:38am 07/11/2016 8: 46am Lymphocytes (%) (Auto) 9.9 % L 23-45 07/11/2016 8:38am 07/11/2016 8: 46am Monocytes (%) (Auto) 6.4 % 0-9.0 07/11/2016 8:38am 07/11/2016 8:46am Eosinophils (%) (Auto) 1.8 % 0-4 07/11/2016 8:38am 07/11/2016 8:46am Basophils (%) (Auto) 0.3 % 0-2 07/11/2016 8:3807/11/2016 8:46am Immature Granulocyte % (Auto) 0.4 % 0.0-0.5 07/11/2016 8:382016 8:46am Absolute Neutrophils (auto) 5.8 T/MM3 1.8-7.7 07/11/2016 8:38am 2016 8:46am Absolute Lymphocytes (auto) 0.7 T/MM3 L 1-4.8 07/11/2016 8:382016 8:46am Absolute Monocytes (auto) 0.5 T/MM3 0-0.8 07/11/2016 8:3807/11/2016 8:46am Absolute Eosinophils (auto) 0.1 T/MM3 0-0.5 07/11/2016 8:382016 8:46am Absolute Basophils (auto) 0.0 T/MM3 0-0.2 07/11/2016 8:3807/11/2016 8:46am Absolute Immature Granulocyte (auto 0.03 T/MM3 0.00-0.03 07/11/2016 8: 3807/11/2016 8:46am Urine Collection Type CLEANCATCH-MIDSTREAM 07/11/2016 8:142016 8:46am Urine Color YELLOW YELLOW 07/11/2016 8:1407/11/2016 8:46am Urine Turbidity CLOUDY CLEAR 07/11/2016 8:1407/11/2016 8:46am Urine Specific [place] >=1.030 H 1.015-1.025 07/11/2016 8:142016 8:46am Urine pH 5.0 5.0-8.0 07/11/2016 8:1407/11/2016 8:46am Urine Leukocyte Esterase TRACE A NEGATIVE 07/11/2016 8:142016 8:46am Urine Nitrite NEGATIVE NEGATIVE 07/11/2016 8:1407/11/2016 8:46am Urine Protein 1+ A NEGATIVE 07/11/2016 8:14am 07/11/2016 8:46am Urine Glucose (UA) NEGATIVE NEGATIVE 07/11/2016 8:14am 07/11/2016 8: 46am Urine Ketones TRACE A NEGATIVE 07/11/2016 8:14am 07/11/2016 8:46am Urine Urobilinogen 0.2 EU/DL NORMAL 07/11/2016 8:14am 07/11/2016 8: 46am Urine Bilirubin 1+ A NEGATIVE 07/11/2016 8:14am 07/11/2016 8:46am Urine Blood TRACE-INTACT A NEGATIVE 07/11/2016 8:14am 07/11/2016 8: 46am Urine WBC 5-10 /HPF H 0-5 07/11/2016 8:14am 07/11/2016 8:59am Urine RBC 0-1 /HPF 0-3 07/11/2016 8:14am 07/11/2016 8:59am Urine Squamous Epithelial Cells 10-20 07/11/2016 8:14am 07/11/2016 8:59am Urine Transitional Epithelial Cells 1-3 /HPF 07/11/2016 8:14am 2016 8:59am Urine Renal Epithelial Cells 1-3 /HPF 07/11/2016 8:14am 07/11/2016 8: 59am Urine Bacteria 4+ H NEGATIVE 07/11/2016 8:14am 07/11/2016 8:59am Urine Hyaline Casts 10-20 /LPF 07/11/2016 8:14am 07/11/2016 8:59am Urine Coarse Granular Casts 0-1 /LPF 07/11/2016 8:14am 07/11/2016 8: 59am Urine Culture Indicated CULT NOT INDICATED 07/11/2016 8:14am 2016 8:59am Neutrophils % (Manual) 90.0 % H 33-66 07/04/2016 8:58am 07/04/2016 9: 43am Band Neutrophils % 1.0 % 0-6 07/04/2016 8:58am 07/04/2016 9:43am Lymphocytes % (Manual) 3.0 % L 23-45 07/04/2016 8:58am 07/04/2016 9: 43am Monocytes % (Manual) 6.0 % 0-9.0 07/04/2016 8:58am 07/04/2016 9:43am Band Neutrophils # 0.1 T/MM3 07/04/2016 8:58am 07/04/2016 9:43am Absolute Neutrophils (Manual) 6.7 T/MM3 1.8-7.7 07/04/2016 8:58am 07/04 9:43am Lymphocytes # (Manual) 0.2 T/MM3 L 1-4.8 07/04/2016 8:58am 07/04/2016 9: 43am Monocytes # (Manual) 0.4 T/MM3 0-0.8 07/04/2016 8:58am 07/04/2016 9: 43am Red Cell Morphology Comment ABNORMAL 07/04/2016 8:58am 07/04/2016 9 :43am Anisocytosis 2+ 07/04/2016 8:58am 07/04/2016 9:43am Poikilocytosis 1+ 07/04/2016 8:58am 07/04/2016 9:43am Macrocytosis 1+ 07/04/2016 8:58am 07/04/2016 9:43am Icterus Index < 2 0-7 07/04/2016 8:58am 07/04/2016 9:21am Chemistry Specimen Hemolysis < 15 0-25 07/04/2016 8:58am 07/04/2016 9 :21am 0-25: Specimen Exhibited No Hemolysis. Turbidity < 20 0-20 07/04/2016 8:58am 07/04/2016 9:21am Sodium Level 137 MEQ/L 134-144 07/04/2016 8:58am 07/04/2016 9:21am Potassium Level 4.3 MEQ/L 3.6-5 07/04/2016 8:58am 07/04/2016 9:21am Chloride Level 104 MEQ/L 98-107 07/04/2016 8:58am 07/04/2016 9:21am Carbon Dioxide Level 22 MEQ/L 22-30 07/04/2016 8:58am 07/04/2016 9: 21am Anion Gap 11 MEQ/L 5-15 07/04/2016 8:58am 07/04/2016 9:21am Blood Urea Nitrogen 17.0 MG/DL 7-17 07/04/2016 8:58am 07/04/2016 9: 21am Creatinine 1.0 MG/DL 0.7-1.2 07/04/2016 8:58am 07/04/2016 9:21am BUN/Creatinine Ratio 17 RATIO 6-26 07/04/2016 8:58am 07/04/2016 9:21am Glomerular Filtration Rate Calc 58 07/04/2016 8:58am 07/04/2016 9: 21am Glucose Level 110 MG/DL 65-110 07/04/2016 8:58am 07/04/2016 9:21am Calculated Osmolality 267 MOSM/KG 261-280 07/04/2016 8:58am 07/04/2016 9:21am Calcium Level 9.7 MG/DL 8.4-10.2 07/04/2016 8:58am 07/04/2016 9:21am Urinalysis Comment MICROSCOPIC NOT IND. 07/04/2016 8:37am 2016 9:11am Urinalysis Comment MICROSCOPIC NOT IND. 06/21/2016 12:25pm 2016 12:44pm Microbiology Results Procedure Source Organism/Result Collection Date/Time Result Date/Time Result Status Urine Culture Urine, Clean Catch-Midstream NO GROWTH AFTER 48 HOURS 2016 12:25pm 06/23/2016 8:45am Final Name: CROW ZUNIGA Unit #: [id number] : [id number] Sex: F Admit Date: Loc / Svc: SCU Discharge Date: DIAGNOSTIC IMAGING REPORT Report #: [id number] [facility] Mike OPHELIA Indication: ITS.REASON: Verify applicatior placement and R/O postop complication CT PELVIS W/O CONTRAST: Comparison: 06/21/2016 Technique: Patient scanned without contrast from the pelvis to below the pubic symphysis. Reformatted sagittal and coronal images provided. Dose reduction imaging technology is utilized. Findings: Patient continues to demonstrate the ovoid and in the device is in place. The patient showed no obvious abnormal free air or free fluid. Contrast material is well demonstrated both in the bladder as well as in the rectosigmoid region with no suggestion of extravasation. Impression: No obvious abnormality from the radiation therapy treatment device. . Procedures Procedure Status Date Provider(s) Insert uteri tandem/ovoids Completed 06/28/[address] pelvis w/o dye Completed 06/28/16 Metabolic panel total ca Completed 06/28/16 Urinalysis auto w/o scope Completed 06/28/16 Complete cbc w/auto diff wbc Completed 06/28/16"INJECTION, CEFAZOLIN SODIUM, 500 MG" Completed 06/28/16"INJECTION, DEXAMETHASONE SODIUM PHOSPHATE, 1MG" Completed 06/28/16"INJECTION, HYDROMORPHONE, UP TO 4 MG" Completed 06/28/16"INJECTION, HYDROMORPHONE, UP TO 4 MG" Completed 06/28/16"INJECTION, KETOROLAC TROMETHAMINE, PER 15 MG" Completed 06/28/16"INJECTION, KETOROLAC TROMETHAMINE, PER 15 MG" Completed 06/28/16 PROPOFOL INJ 500 MG/50ML Completed 06/28/16"INJECTION, FENTANYL CITRATE, 0.1 MG" Completed 06/28/16"RINGERS LACTATE INFUSION, UP TO 1000 CC" Completed 06/28/16"LOW OSMOLAR CONTRAST MATERIAL, 300-399 MG/ML IODINE C Completed "LOW OSMOLAR CONTRAST MATERIAL, 300-399 MG/ML IODINE C Completed Urinalysis auto w/o scope Completed 06/21/16 Brachytherapy Completed 06/21/16 MATT REYES MD Brachytherapy Completed 07/11/16 MATT REYES MD Brachytherapy Completed 07/04/16 MATT REYES MD Encounters Encounter Location Arrival/Admit Date Discharge/Depart Date Attending Provider Departed [facility] 07/11/16 7:57am 07/11/16 11 :40am MATT REYES MD Departed [facility] 07/04/16 8:30am 07/04/16 11 :20am MATT REYES MD Departed [facility] 06/28/16 11:43am 06/28/16 3 :15pm MATT REYES MD Registered Clinic [facility] 06/21/16 12:36pm MATT REYES MD Departed [facility] 06/21/16 6:25am 06/21/16 9: 48am MATT REYES MD
[2016-07-18 08:48] LABS: BASOPHILS % (AUTO) 0.2 % (0-2); EOSINOPHILS # (AUTO) 0.1 T/MM3 (0-0.5); EOSINOPHILS % (AUTO) 2.1 % (0-4); HCT - HEMATOCRIT 30.6 % (36-46); HGB - HEMOGLOBIN 10.4 GM/DL (12-16); IMMATURE GRANULOCYTE # (AUTO) 0.02 T/MM3 (0.00-0.03); IMMATURE GRANULOCYTE % (AUTO) 0.3 % (0.0-0.5); LYMPHOCYTES # (AUTO) 0.5 T/MM3 (1-4.8); LYMPHOCYTES % (AUTO) 9.3 % (23-45); MEAN CORPUSCULAR HGB 36.9 UUG (26-34); MEAN CORPUSCULAR VOLUME 108.5 UM3 (80-100); MEAN PLATELET VOLUME 8.8 UM3 (9.4-12.4); MONOCYTES # (AUTO) 0.4 T/MM3 (0-0.8); MONOCYTES % (AUTO) 7.2 % (0-9.0); NEUTROPHILS #(AUTO)-ABSOLUTE 4.7 T/MM3 (1.8-7.7); NEUTROPHILS % (AUTO) 80.9 % (33-66); RED BLOOD COUNT 2.82 M/MM3 (4.00-5.20); WBC - WHITE BLOOD COUNT 5.8 T/MM3 (4.5-11.0)
--- NOTE | 2016-07-18 08:48 | ANESPREOP ---
Anesthesia Record Date and Time DATE: 07/18/16 TIME: 08:35 Proposed Surgical Procedure TANDEM AND OVOID INSERTION 5 NPO since: mn Allergies: Coded Allergies: latex (Verified Allergy, Intermediate, BLISTERING, 07/18/16) adhesive tape (Verified Allergy, Mild, REDNESS AND ITCHY, 07/18/16) morphine (Verified Adverse Reaction, Unknown, HALLUCINATIONS, 07/18/16) Ht/Wt/BMI Height: 5 ' 3.00 " Weight: 63.100 kg BMI: 24.6 kg/m2 Vital Signs Date Time Temp Pulse Resp B/P Pulse Ox O2 Delivery O2 Flow Rate FiO2 07/18/16 08:26 97.6 75 12 129/63 100 Room Air Medications Inpatient Medications Current Medications Medications (Trade) Dose Ordered Sig/Jennie Start Time Stop Time Status Last Admin Dose Admin Lactated Ringer's (Lactated Ringers) 1,000 ml @ 30 mls/hr Q24H 07/18/16 07:00 Amitriptyline HCl (Amitriptyline HCl) 25 Mg Tablet, 1 TAB PO HS, (Reported) Last Taken: on 05/29/16 Aspirin (Aspir 81) 81 Mg Tablet.dr, 1 TAB PO DAILY, (Reported) Last Taken: on 07/16/16 Atorvastatin Calcium (Atorvastatin Calcium) 20 Mg Tablet, 1 TAB PO HS, (Reported) Last Taken: on 07/17/16 2100 Chlorphen/Pseudoeph/Ibuprofen (Advil Allergy Sinus Caplet) 1 Each Tablet, 1 TAB PO DAILY PRN for ALLERY SYMPTOMS, (Reported) Last Taken: on 07/18/16 0530 Digoxin (Lanoxin) 125 Mcg Tablet, 1 TAB PO DAILY, (Reported) Last Taken: on 07/18/16 0530 Hydrocodone/Acetaminophen (Hydrocodon- Acetaminoph 7.5-325) 7.5-325 Tablet, 1-2 TAB PO Q6H PRN for PAIN, (Reported) Last Taken: on 07/18/16 0430 Metoprolol Succinate (Metoprolol Succinate) 100 Mg Tab.er.24h, 1 TAB PO BID, (Reported) Last Taken: on 07/18/16 0530 Niacin (Niacin ER) 750 Mg Tab.er.24h, 1 TAB PO BID, (Reported) Last Taken: on 07/16/16 Sulfamethoxazole/Trimethoprim (Sulfamethoxazole- Tmp Ds Tablet) 1 Each Tablet, 1 TAB PO BID, (Reported) Last Taken: on 07/17/16 2100 Triamterene/Hydrochlorothiazid (Triamterene- Hctz 37.5-25 mg Tb) 1 Each Tablet, 1 TAB PO DAILY PRN for INCREASED BLOOD PRESSURE, (Reported) Last Taken: on 05/29/16 Currently on Beta Mahendra: Yes Beta Mahendra Last Taken: 07/18/16 @ 0530 Medical/Surgical History Anesthesia PMH: Reports: *Hypertension, *PA (before heart surgery), Asthma ( DOES NOT USE INHALER), CVA/Stroke/TIA (1990 or 1991--with heart cath--left sided weakness), Cancer (CERVICAL), Cardiac Arrythmia, Hyperlipidemia, Sleep Apnea # of Packs per Day: 1 # of Years: 20 Use Chewing Tobacco?: No Second Hand Exposure: Yes (cigars) Substance Use Type: does not use Alcohol Intake: none HX of Last Menstrual Period: OVER A YEAR AGO Past Surgical History Orthopedic Surgeries: Abdominal Surgeries: Yes - LAP HENRRY Genitourinary Surgeries: Cardiac Surgeries: Yes - OPEN HEART Endocrine Surgeries: Reproductive Surgeries: Yes - sleeve insertion for brachytherapy,T&O INSERTION Neurological Surgeries: Ear Surgeries: Nose Surgeries: Throat Surgeries: Other Surgeries: Yes - Power Port Insertion Anesthesia Adverse Reactions: FOUND none Family Hx of Anesthesia Advers: none Hx of Motion Sickness: No Pertinent Findings EKG Rhythm: Sinus Rhythm Physical Exam Respiratory: Lungs clear Cardiovascular: FOUND Regular rate, rhythm Airway Assessment Mallampati Score: II TMD: 3 Fingerbreadths Neck Extension: Fair Overall Assessment: No Airway Concerns ASA: 3 Plan Anesthesia Plan: TIVA, LMA, GETA Discussion Discussed risks/options/alternatives of anesthesia and questions answered. Patient consents. Nursing pain assessment noted. Attestation Statement Prior to the delivery of any anesthetic medication, I examined the patient, developed the plan, obtained the patient's consent and discussed the risk and benefits of the procedure with the patient/guardian. MARISA LINDER CRNA Jul 18, 2016 08:43
[2016-07-18 08:52] LABS: BLOOD, URINE TRACE-LYSED (NEGATIVE); COLOR,URINE YELLOW (YELLOW); LEUKOCYTE ESTERASE ,URINE TRACE (NEGATIVE); NITRITE,URINE NEGATIVE (NEGATIVE); UROBILINOGEN,URINE 0.2 EU/DL (NORMAL)
[2016-07-18 08:59] LABS: ANION GAP 11 MEQ/L (5-15); BUN/CREATININE RATIO 13 RATIO (6-26); CALCIUM 9.4 MG/DL (8.4-10.2); CHLORIDE 107 MEQ/L (98-107); CO2 - CARBON DIOXIDE 21 MEQ/L (22-30); CREATININE 1.3 MG/DL (0.7-1.2); GLOMERULAR FILTRATION RATE 43; GLUCOSE 103 MG/DL (65-110); POTASSIUM 4.3 MEQ/L (3.6-5); SODIUM 139 MEQ/L (134-144)
[2016-07-18] MEDS ORDERED: SCOPOLAMINE 1.5 MG PATCH TD ONE (09:00)
[2016-07-18] MEDS ORDERED: FENTANYL 100mcg/2ml INJECTION IV ONE (09:27)
[2016-07-18] MEDS ORDERED: SALINE FLUSH 10ml SYRINGE IVF ONE (09:27)
[2016-07-18] MEDS ORDERED: IOHEXOL 300 MG/ML 50ml INJECTION IV ONE (09:27)
[2016-07-18] MEDS ORDERED: DEXAMETHASONE 4 MG/ML IV ONE (09:27)
[2016-07-18] MEDS ORDERED: KETAMINE 500mg/10ml INJECTION IV ONE (09:27)
[2016-07-18] MEDS ORDERED: KETOROLAC 30mg/ml INJECTION IV ONE (09:27)
[2016-07-18] MEDS ORDERED: IOHEXOL 300 MG/ML 50ml INJECTION ONE (10:00)
--- NOTE | 2016-07-18 10:15 | ANESPO ---
Post-Op Note Date 07/18/16 Time: 10:15 Status Pt Participated in Evaluation: Pt participated in person Vital Signs Date Time Temp Pulse Resp B/P Pulse Ox O2 Delivery O2 Flow Rate FiO2 07/18/16 09:57 98.2 64 12 97/56 100 Mask 6.00 Respiratory Function: Airway patent, Regular respirations Cardiovascular Function: Regular pulse Mental Status: Alert/oriented Pain Level Intensity: 4 Hydration: IV infusing Complications during Recovery None apparent Follow-Up Instructions Instructions Per Surgeon MARISA LINDER CRNA Jul 18, 2016 10:15
[2016-07-18] MEDS ORDERED: HYDROMORPHONE 2mg/ml INJECTION IV PRN ×2 (10:30)
[2016-07-18] MEDS ORDERED: ONDANSETRON 4mg/2ml INJECTION IV PRN (10:30)
--- NOTE | 2016-07-18 10:55 | NUR ---
Transfer Patient alert and oriented without complaints. Transferred to Imaging Department per cart for CT. Dalal patent. RN remains with patient during CT.
--- NOTE | 2016-07-18 11:10 | NUR ---
Transfer Patient remains alert and oriented. Transfer of care to [facility] per cart accompanied by Marianne, Radiation Therapist.
--- NOTE | 2016-07-18 11:23 | DI ---
Indication: ITS.REASON: Verify applicator placement and R/O postop complications PROCEDURE: CT PELVIS W/O CONTRAST: Encounter: Subsequent Comparison: Pelvis CT dated July 11, 2016 Technique: Axial noncontrast CT imaging through the pelvis with coronal and sagittal two-dimensional reformats. Automated Exposure Control and Iterative Reconstruction dose reducing techniques were utilized. Findings: Tandem and ovoid device in place. The tandem appears appropriately positioned in the central aspect of the uterus. No evidence of uterine perforation. Ovoids appear normally positioned. Dalal catheter within a contrast-filled bladder. Contrast material within the rectosigmoid colon as well. No evidence of solid organ perforation. Visualized small and large bowel loops in the pelvis are unremarkable. Bone windows are within normal limits. Impression: Radiation therapy treatment device in place with no evidence of immediate complication. .
--- NOTE | 2016-07-18 18:19 | GSDISC ---
General Date Date DATE: 07/18/16 TIME: 18:15 Attending Physician Sri Díaz MD Admitting Physician Sri Díaz MD Consulting Physician Discharge Diagnosis: (1) Cervical carcinoma Procedures Tandem and Ovoid insertion with exam under anesthesia. Laboratory Laboratory Laboratory Tests Test 07/18/16 08:21 07/18/16 08:36 Urine Collection Type Cleancatch-midstream Urine Color Yellow Urine Turbidity Sl cloudy Urine pH 5.5 Urine Specific [place] >=1.030 Urine Protein Trace Urine Glucose (UA) Negative Urine Ketones Trace Urine Blood Trace-lysed Urine Nitrite Negative Urine Bilirubin 1+ Urine Urobilinogen 0.2EU/DL Urine Leukocyte Esterase Trace Urinalysis Comment Microscopic not ind. White Blood Count 5.8T/MM3 Red Blood Count 2.82M/MM3 Hemoglobin 10.4GM/DL Hematocrit 30.6% Mean Corpuscular Volume 108.5UM3 Mean Corpuscular Hemoglobin 36.9UUG Mean Corpuscular Hemoglobin Concent 34.0GM/DL RDW Standard Deviation 58.8FL Platelet Count 244T/MM3 Mean Platelet Volume 8.8UM3 Immature Granulocyte % (Auto) 0.3% Neutrophils (%) (Auto) 80.9% Lymphocytes (%) (Auto) 9.3% Monocytes (%) (Auto) 7.2% Eosinophils (%) (Auto) 2.1% Basophils (%) (Auto) 0.2% Absolute Immature Granulocyte (auto 0.02T/MM3 Absolute Neutrophils (auto) 4.7T/MM3 Absolute Lymphocytes (auto) 0.5T/MM3 Absolute Monocytes (auto) 0.4T/MM3 Absolute Eosinophils (auto) 0.1T/MM3 Absolute Basophils (auto) 0.0T/MM3 Turbidity < 20 Sodium Level 139MEQ/L Potassium Level 4.3MEQ/L Chloride Level 107MEQ/L Carbon Dioxide Level 21MEQ/L Anion Gap 11MEQ/L Blood Urea Nitrogen 17.0MG/DL Creatinine 1.3MG/DL Glomerular Filtration Rate Calc 43 BUN/Creatinine Ratio 13RATIO Glucose Level 103MG/DL Calculated Osmolality 270MOSM/KG Calcium Level 9.4MG/DL Icterus Index < 2 Chemistry Specimen Hemolysis < 15 Hospital Course Patient was prepped and draped in standard fashion. Dalal was placed with Hypaque in balloon. Exam under anesthesia shows improvement without any new lesions or complications. 15 degree tandem and small ovoids placed without difficulty. Separate bladder and rectal packing were placed without complication. Rectal tube placed for CT contrast to assist in treatment planning. Patient tolerated procedure well and was dismissed to recovery in good condition. Home Meds Reported Medications Sulfamethoxazole/Trimethoprim (Sulfamethoxazole-Tmp Ds Tablet) 1 Each Tablet, 1 TAB PO BID 07/17/16 Aspirin (Aspir 81) 81 Mg Tablet.dr, 1 TAB PO DAILY, TAB 06/20/16 Chlorphen/Pseudoeph/Ibuprofen (Advil Allergy Sinus Caplet) 1 Each Tablet, 1 TAB PO DAILY Y for ALLERY SYMPTOMS 06/20/16 Digoxin (Lanoxin) 125 Mcg Tablet, 1 TAB PO DAILY, TAB 06/20/16 Hydrocodone/Acetaminophen (Hydrocodon-Acetaminoph 7.5-325) 7.5-325 Tablet, 1-2 TAB PO Q6H Y for PAIN 06/20/16 Amitriptyline HCl (Amitriptyline HCl) 25 Mg Tablet, 1 TAB PO HS 06/20/16 Niacin (Niacin ER) 750 Mg Tab.er.24h, 1 TAB PO BID 06/20/16 Atorvastatin Calcium (Atorvastatin Calcium) 20 Mg Tablet, 1 TAB PO HS 06/20/16 Metoprolol Succinate (Metoprolol Succinate) 100 Mg Tab.er.24h, 1 TAB PO BID 06/20/16 Triamterene/Hydrochlorothiazid (Triamterene-Hctz 37.5-25 mg Tb) 1 Each Tablet, 1 TAB PO DAILY Y for INCREASED BLOOD PRESSURE 06/20/16 Discharge Disposition Dismissed to recovery in good condition. SRI DÍAZ MD Jul 18, 2016 18:19
== END 2016-07-18 11:10 | disposition home or self-care (01) ==
LOC: SCU 08:10
PROVIDERS: ATTEND Radiology Radiation Oncology
DX: C53.0 Malignant neoplasm of endocervix (principal); Z79.82 Long term (current) use of aspirin; Z79.899 Other long term (current) drug therapy; Z87.891 Personal history of nicotine dependence
CPT/HCPCS: 57155; 72192; 80048; 81003; 85025; J0690; J1100; J1170; J1885; J2704; J3010; J7120; Q9967